=== PATIENT | male | born 1975 | race American Indian/Alaskan Native ===

== ENCOUNTER 2022-09-04 15:21 | Emergency (ER) | payer OTHER, SELFPAY ==
[2022-09-04 15:38] VITALS: BP 127/82; PULSE 83; RESP 16; O2SAT 99
--- NOTE | 2022-09-04 15:39 | XRR_ITS ---
PROCEDURE INFORMATION: Exam: XR Left Ribs with PA Chest Exam date and time: 09/04/2022 4:05 PM Age: 46 years old Clinical indication: Chest wall pain; Left; Patient HX: [place] pop in lt ribs; Additional info: Left rib pain TECHNIQUE: Imaging protocol: Radiologic exam of the left ribs with PA chest. Views: 3 views COMPARISON: No relevant prior studies available. FINDINGS: Lungs: Unremarkable. No consolidation. Pleural spaces: Unremarkable. No pleural effusion. No pneumothorax. Heart/Mediastinum: Unremarkable. No cardiomegaly. Bones/joints: Unremarkable. XR/XR ribs LT mn 3V w [id number] IMPRESSION: No acute findings.
--- NOTE | 2022-09-04 16:25 | ED_ITS ---
HPI - General Adult General: Chief complaint: General Medical Stated complaint: Rib pain on left side Time Seen by Provider: 09/04/22 16:07 History of Present Illness: Patient is a 46-year-old male who comes to the ED with left rib pain. Patient was at work and pulling on a wrench when he felt a pop on the left lateral side of chest. He now has 8 out of 10 pain around left lower rib. Pain worsens with movement or when he takes a deep breath. Associated symptoms: Deny chest pain, dyspnea, headache(s), nausea, rash, palpitations or vomiting Review of Systems Const: Denies: fever(s), chills or fatigue Eyes: Denies: change in vision or eye discomfort ENMT: Denies: throat pain, odynophagia, nasal discharge or nasal congestion Card: Denies: chest pain, palpitations, edema, swelling of feet/ankles, dyspnea on exertion or orthopnea Resp: Denies: dyspnea, productive cough or non-productive cough GI: Denies: abdominal pain, nausea, vomiting, diarrhea, constipation or hematochezia : Denies: flank pain, difficulty urinating, dysuria or hematuria Musc: Reports: other (Left rib pain); Denies: neck pain, back pain or extremity swelling Skin/Breast: Denies: rash or new lesions Neuro: Denies: headache(s), numbness in extremities or weakness in extremities [facility] ED PFSH: Medical History (Updated 09/05/22 @ 07:33 by KOJO Valentino) No pertinent family history Surgical History (Updated 09/05/22 @ 07:33 by KOJO Valentino) No pertinent past surgical history Physical Exam Const: COMMON NORMALS: patient oriented x3 and alert GENERAL APPEARANCE: cooperative HENMT: COMMON NORMALS: normocephalic HEAD & SCALP: normocephalic MOUTH: Normal oral and palatal mucosa present THROAT: posterior oropharynx normal and uvula midline Neck/C-Spine: COMMON NORMALS: supple GENERAL: Yes normal visual inspection Chest: CHEST: Yes tenderness rib left mid-axillary line involving the 9th rib and involving the 10th rib and other (Soft tissue and muscle tenderness on left side of chest and abdomen) Resp: COMMON NORMALS: normal respiratory effort, No retractions, No use of accessory muscles and clear to auscultation bilaterally AUSCULTATION: clear to auscultation bilaterally Cardio: COMMON NORMALS: regular rate, regular rhythm, S1 normal heart sound present, S2 normal heart sound present, No gallops present (Cardio), No clicks present (Cardio), No murmurs present (Cardio) and Peripheral pulses 2+ throughout RATE: regular rate RHYTHM: regular rhythm HEART SOUNDS: S1 normal heart sound present and S2 normal heart sound present PERIPHERAL PULSES: Peripheral pulses 2+ throughout GI: COMMON NORMALS: Normal to inspection, nondistended, normoactive bowel sounds present, Soft to palpation, non-tender and no masses PALPATION: Yes Soft to palpation : COMMON NORMALS: Yes no CVA tenderness BLADDER/KIDNEY EXAM: Yes no CVA tenderness Back/Pelvis: COMMON NORMALS: no CVA tenderness Extremity: COMMON NORMALS: normal to inspection Neuro: COMMON NORMALS: patient oriented x3 SENSORIUM/ORIENTATION: Yes alert GAIT: Yes Normal gait present Skin: GENERAL SKIN EXAM: dry skin Course Vital Signs: Vital signs: Vital Signs Pulse Rate 83 09/04/22 15:38 Respiratory Rate 16 09/04/22 15:38 Blood Pressure 127/82 09/04/22 15:38 Pulse Oximetry 99 09/04/22 15:38 Oxygen Delivery Me thod 09/04/22 15:38 MDM - General Adult Medical Decision Making Patient is a 46-year-old male who comes to the ED with left rib pain. Patient was at work and pulling on a wrench when he felt a pop on the left lateral side of chest. He now has 8 out of 10 pain around left lower rib. Pain worsens with movement or when he takes a deep breath. Vitals are stable. Patient has some left mid axillary rib tenderness along with soft tissue muscle tenderness on left side of chest and abdomen. Patient appears nontoxic and in no acute distress. Left rib x-ray shows no acute fractures or findings. Patients injury diagnosed as a muscle strain and he was given a dose of Toradol and Norflex here in the ED. He was stable for discharge home and sent home with a prescription for ibuprofen 8 or milligrams and muscle relaxer. Follow-up with PCP in the next week for reevaluation. Return to ED precautions given. Patient understood and agreed with plan. Lab Data Radiology Impressions Ribs X-Ray 09/04/22 15:39 IMPRESSION: No acute findings. Discharge Plan Discharge Patient Disposition: Home Clinical Impression: Muscle strain Condition: Stable Prescriptions: New ibuprofen 800 mg tablet 800 mg PO Q8H PRN (Reason: pain) Qty: 30 0RF methocarbamol 750 mg tablet 750 mg PO Q8H PRN (Reason: Muscle spasms and pain) Qty: 20 0RF Discharge Orders: Discharge ED (Routine); Ordered 09/04/22 Ordered By: Rajesh Graves Discharge Diet: Regular Discharge Activity: Increase activity as tolerated and Limit activity as instructed Activity Restrictions/Additional Instructions: Follow-up with medical provider as directed in the next 5 to 7 days for reevaluation. Take medications as prescribed. Methocarbamol is a muscle relaxer and can cause some drowsiness so do not operate any machinery while taking this medication. Apply cold pack on sore area multiple times a day for 10 to 15 minutes at a time. Stretch sore muscles daily. Return to the ER or your medical provider if condition worsens. Please read and understand discharge instructions. Thank you for choosing [facility] for your healthcare needs today. Please realize this is an emergency room and that we are providing you with a medical screening exam and this may not be complete and all inclusive of all the testing and or work up that you may need to determine your ailment or severity of your illness. It is very important that you follow up as instructed or that you return to the Emergency Department should you have concerns or if your condition changes or worsens in any way. Stand Alone Forms: Work/School Release Coding Level of Care Code ED [employer] for [employer] Campos
[2022-09-04] MEDS: orphenadrine 30 mg/mL Inj 2 mL 60 MG IM (16:40)
[2022-09-04] MEDS: ketorolac 60 mg/2 mL INJ IM (16:40)
--- NOTE | 2022-09-05 16:57 | DCPLANNER ---
TCM called patient due to no primary care physician - patient stated that he sees someone at [facility]
== END 2022-09-04 17:15 | disposition home or self-care (01) ==
PROVIDERS: Emergency Provider Physician Assistant
DX: S29.011A Strain of muscle and tendon of front wall of thorax, initial encounter (principal); X50.0XXA Overexertion from strenuous movement or load, initial encounter
CPT/HCPCS: 71101; 96372; 99284; J1885; J2360

== ENCOUNTER 2022-10-19 08:25 | Outpatient (CLI) | payer OTHER, SELFPAY ==
--- NOTE | 2022-10-19 08:37 | MR_ITS ---
WS: [id number] MRI ABDOMEN without CONTRAST. COMPARISON: Complete abdomen ultrasound 09/21/2022 Multiplanar, multisequence imaging is performed without contrast. No pleural effusion or cardiomegaly. Lung bases are clear. Normal size liver. No mass or abnormal enhancement. No significant fatty infiltration. Normal size sp jaime. Normal gallbladder. No bile duct dilatation. Normal portal vein. Pancreas is normal. No pancrea tic duct dilatation. Kidneys are both normal size and signal intensity. No obstruction. No ascites or adenopathy. Normal aorta. Normal appearance of the mesenteric arteries. No soft tissue abnormality. Paraspinal soft tissues are normal as visualized through the abdomen. MR/MR abdomen con [id number] IMPRESSION: Negative MRI abdomen.
== END 2022-10-19 08:26 | disposition home or self-care (01) ==
LOC: RAD 08:28
PROVIDERS: Visit Provider Family Medicine
DX: S39.012D Strain of muscle, fascia and tendon of lower back, subsequent encounter (principal); X58.XXXD Exposure to other specified factors, subsequent encounter
CPT/HCPCS: 74181